=== PATIENT | female | born 1985 | race Caucasian/White ===

== ENCOUNTER 2016-12-25 12:08 | Emergency (ER) | payer MEDICAID ==
[~2016-12-25] VITALS: Wt 64.0 kg
[2016-12-25] MEDS ORDERED: ACET500C5 PO (12:42)
--- NOTE | 2016-12-25 12:48 | ERD ---
ER Documentation Chief Complaint Date/Time DATE: 12/25/16 TIME: 12:46 Chief Complaint CHEST PAIN X 1 WEEK 18 WEEKS PREG HPI This 31-year-old female is approximately 18 weeks by dates complaints of intermittent left-sided chest wall pain. She is able to reproduce it by moving and deep breathing. She is also able to reproduce it by pressing on her anterior chest wall. She denies any vaginal bleeding, abdominal pain, vomiting , fevers, hemoptysis or blood . She denies any calf swelling. ROS All systems reviewed and are negative except as per history of present illness. Medications Home Meds Active Scripts Acetaminophen* (Tylophen*) 500 Mg Capsule, 1 CAP PO Q6H Y for PAIN AND OR ELEVATED TEMP, #15 CAP Prov:TEODORA CLAROS MD 12/25/16 Physical Exam Vitals Vital Signs Date Time Temp Pulse Resp B/P Pulse Ox O2 Delivery O2 Flow Rate FiO2 12/25/16 12:10 98.0 70 18 147/96 99 Physical Exam Const: [] Alert, [id number]. Head: Atraumatic Eyes: Normal Conjunctiva ENT: Normal External Ears, Nose and Mouth. Neck: Full range of motion..~ No meningismus. Resp: Clear to auscultation bilaterally Cardio: Regular rate and rhythm, no murmurs. Reproducible left-sided chest wall pain at the costochondral junction. Abd: Soft, non tender, non distended. Normal bowel sounds Skin: No petechiae or rashes Back: No midline or flank tenderness Ext: No cyanosis, or edema. No calf swelling or Homans sign. Neur: Awake and alert Psych: Normal Mood and Affect Procedures/MDM EKG: Rate/Rhythm: [Normal Sinus Rhythm] rate equals 73 QRS, ST, T-waves: [No changes consistent w/ acute ischemia] Impression: [No evidence of ischemia or arrhythmia] This patient presents with reproducible left-sided chest wall pain. Patient is no signs or symptoms currently to suggest acute coronary syndrome, PE, pneumonia , hypoxemia. Patient was discharged home with a prescription of Tylenol and further observation. Further evaluation and radiologic studies were deferred given the risk of radiation and state. Patient should return for hemoptysis, shortness breath, fevers, new worsening symptoms with primary care doctor this week. Departure Diagnosis: Primary Impression: Chest pain Chest pain type: unspecified Qualified Code: R07.9 - Chest pain, unspecified type Condition: Stable Patient Instructions: Chest Wall Pain, Costochondritis Additional Instructions: Likely costochondrITIS. See primary doctor for follow-up or return for new or worsening symptoms having fever and, shortness of breath, blood, new symptoms TEODORA CLAROS MD Dec 25, 2016 12:48
== END 2016-12-25 13:00 | disposition home or self-care (01) ==
LOC: FTE 12:08
DX: O99.89 Other specified diseases and conditions complicating pregnancy, childbirth and the puerperium (principal); R07.89 Other chest pain; Z3A.18 18 weeks gestation of pregnancy
CPT/HCPCS: 99283

== ENCOUNTER 2017-04-18 11:12 | Outpatient (CLI) | payer MEDICAID ==
[~2017-04-18] VITALS: Ht 162.6 cm; Wt 72.3 kg
[~2017-04-18 11:12] MED LIST: ACET500C5 PO
[2017-04-18 11:27] VITALS: Ht 162.6 cm; Wt 72.3 kg
[2017-04-18 11:28] VITALS: BP 132/80; PULSE 76; RESP 18
[2017-04-18] MEDS ORDERED: LACTATED RINGER'S 1,000 ML IV ONE (12:30)
[2017-04-18 13:00] LABS: ALBUMIN 4.1 g/dl (3.3-4.9); ALBUMIN/GLOBULIN RATIO 1.28; BILIRUBIN,INDIRECT 0.2 mg/dl (0-1.1); BILIRUBIN,TOTAL 0.2 mg/dl (0.2-1.3); CALCIUM 9.3 mg/dl (8.4-10.2); CREATININE 0.72 mg/dl (0.44-1.00); POTASSIUM 4.1 mmol/L (3.5-5.1); TOTAL PROTEIN 7.3 g/dl (6.1-8.1)
[2017-04-18 13:06] LABS: ADD SCAN DIFF NO
[2017-04-18 13:15] LABS: ADD UMIC NO; UR ASCORBIC ACID NEGATIVE (NEGATIVE); UR BILIRUBIN (Dip) NEGATIVE (NEGATIVE); UR BLOOD (Dip) NEGATIVE (NEGATIVE); UR CLARITY CLEAR (CLEAR); UR COLOR YELLOW (YELLOW); UR GLUCOSE (Dip) NEGATIVE (NEGATIVE); UR KETONES (Dip) NEGATIVE (NEGATIVE); UR LEUKOCYTE ESTERASE (Dip) NEGATIVE Leu/ul (NEGATIVE); UR NITRITE (Dip) NEGATIVE (NEGATIVE); UR SPECIFIC GRAVITY (Dip) 1.011 (1.003-1.030); UR TOTAL PROTEIN (Dip) NEGATIVE (NEGATIVE); UR UROBILINOGEN (Dip) NEGATIVE (NEGATIVE)
[2017-04-18] MEDS ORDERED: LACTATED RINGER'S 1,000 ML IV SCH (13:30)
[2017-04-18 14:14] LABS: BASOPHILS % 0.2 % (0.0-2.0); EOSINOPHILS # 0.1 10^3/ul (0.0-0.5); EOSINOPHILS % 0.5 % (0.0-7.0); LYMPHOCYTES % 14.8 % (15.0-51.0); MEAN CORPUSCULAR HEMOGLOBIN 29.9 pg (29.0-33.0); MEAN CORPUSCULAR HGB CONC 32.5 g/dl (32.0-37.0); MEAN PLATELET VOLUME 10.9 fl (7.4-10.4); MONOCYTE # 1.1 10^3/ul (0.3-0.9); MONOCYTES % 8.4 % (0.0-11.0); NEUTROPHIL # 9.9 10^3/ul (1.6-7.5); NEUTROPHILS % 74.7 % (39.0-77.0); PLATELET COUNT 186 10^3/UL (140-415); RED BLOOD COUNT 4.35 10^6/ul (4.20-5.40); RED CELL DISTRIBUTION WIDTH 12.5 % (11.5-14.5); WHITE BLOOD COUNT 13.3 10^3/ul (4.8-10.8)
[2017-04-18] MEDS ORDERED: METH250T PO (15:08)
[2017-04-18] MEDS ORDERED: PRENAT PO (15:08)
[2017-04-18] MEDS ORDERED: FERR325C PO (15:08)
--- NOTE | 2017-04-18 15:19 | TRIAGE ---
OB Triage Datetime Report Generated by CPN: 04/18/2017 15:19 Datetime: 04/18/2017 13:15 Labor Evaluation Frequency: 2-10 Monitor Mode: External Duration (sec)2399: 50-90 Quality: Moderate Pattern: Normal: <= 5 Contractions in 10 Minutes Resting Tone [place]: Relaxed Heart Rate FHR Baseline Rate: 140 Monitor Mode: External US FHR Baseline Changes: No Baseline Change Variability: Moderate 6-25 bpm Accelerations: 15X15 Decelerations: None Category: Category I Pain Assessment Pain Scale: 4 Pain Presence: Intermittent Pain Type: Contraction; Pressure Pain Location: Abdomen; Back Pain Goal: 0 Pain Relief Measures: Comfort Measures Datetime: 04/18/2017 12:15 Labor Evaluation Frequency: 2-4.5 Monitor Mode: External Duration (sec)2399: 50-100 Quality: Moderate Pattern: Normal: <= 5 Contractions in 10 Minutes Resting Tone [place]: Relaxed Heart Rate FHR Baseline Rate: 135 Monitor Mode: External US FHR Baseline Changes: No Baseline Change Variability: Moderate 6-25 bpm Accelerations: 15X15 Decelerations: None Category: Category I Pain Assessment Pain Scale: 4 Pain Presence: Intermittent Pain Type: Contraction; Pressure Pain Location: Abdomen Pain Goal: 0 Pain Relief Measures: Comfort Measures Datetime: 04/18/2017 11:25 Time of Arrival: 04/18/2017 11:05 EGA: 35.2 Arrived By: Wheelchair Arrived From: Emergency Dept Chief Complaint: Headache Movement: Present Contractions: Denies/Absent Rupture of Membranes: Denies Vaginal Discharge: Denies Recent Sexual Intercouse: Denies Abdominal Trauma: Not Applicable Additional Patient Complaints: Elevated BPs Time Provider Notified: 04/18/2017 12:05 Provider Notified: Inessa Initial Plan: NST, PIH panel and UA, IV hydration Datetime: 04/18/2017 11:15 Stage of : OB Triage
--- NOTE | 2017-04-18 18:47 | QN ---
Documentation Comment iup 35 + g1po co of MCDONNELL vss bp 120/80 exam wnl cbc,cmp, ua wnl nst reacitve a/p iup 35 weeks MCDONNELL resolved dc home MARYSOL PEDRAZA MD Apr 18, 2017 18:47
== END 2017-04-18 15:15 | disposition home or self-care (01) ==
LOC: OBT 11:12 → L-D 11:14 → OBT 15:15
PROVIDERS: ATTEND Obstetrics & Gynecology
DX: O26.893 Other specified pregnancy related conditions, third trimester (principal); Z3A.35 35 weeks gestation of pregnancy; R51 Headache
CPT/HCPCS: 36415; 80053; 81003; 84560; 85025; 96360; 96361; J7120; Z7500; G0463

== ENCOUNTER 2017-04-29 10:54 | Outpatient (CLI) | payer MEDICAID ==
[~2017-04-29] VITALS: Ht 160 cm; Wt 75.4 kg
[~2017-04-29 10:54] MED LIST changes: +FERR325C PO; +METH250T PO; +PRENAT PO
[2017-04-29 11:17] VITALS: Ht 160 cm; Wt 75.4 kg
--- NOTE | 2017-04-29 12:51 | RADRPT ---
PROCEDURE: OB ultrasound for biophysical profile CLINICAL INDICATION: Labor TECHNIQUE: Multiple sonographic images of the pelvis were obtained. Transabdominal views of the g ravid uterus are available for review. The images were reviewed on a PACS workstation. COMPARISON: None FINDINGS: breathing movement = 2/2 tone = 2/2 motion = 2/2 MIGNON = 2/2 MIGNON = 11.6 cm Single live intrauterine with cardiac activity of 154 bpm. position is cephal ic. The placenta is anterior. IMPRESSION: 1. Single live intrauterine gestation. 2. Biophysical profile = 8/8. 3. MIGNON = 11.6 cm. RPTAT: HH .Patti Callejas MD, MD Date Time Electronically viewed and signed by .Patti Callejas MD, on 04/29/2017 12:51 .G/
--- NOTE | 2017-04-29 13:08 | RADRPT ---
PROCEDURE: US OB. CLINICAL INDICATION: Size and dates TECHNIQUE: Multiple sonographic images of the pelvis were obtained. Transabdominal imaging only w as performed. The images were reviewed on a PACS workstation. COMPARISON: No prior studies are available for comparison. FINDINGS: There is a single live intrauterine gestation. Cardiac activity is present with 166 beats per minut e. position is cephalic. Measurements were made in order to determine age. The results are as follows: BPD = 8.67 cm HC = 30.74 cm AC = 32.54 cm FL = 6.89 cm. Estimated gestational age of approximately 35 weeks 2 days. The estimated date of delivery is 06/01/2017. The EFW = 2763 g, 26.9 %ile. The placenta is anterior. There is no evidence for an abruption or placenta previa. There are no adnexal masses. IMPRESSION: 1. Single live intrauterine gestation of approximately 35 weeks 2 days, by ultrasound criteria. 2. The estimated date of delivery is 06/01/2017. 3. The estimated weight is 2763 g, 26.9 %ile. RPTAT: HH .Patti Callejas MD, Date Time Electronically viewed and signed by .Patti Callejas MD, on 04/29/2017 13:08 .G/
--- NOTE | 2017-04-29 13:50 | CONS ---
Date/Time of Note Date/Time of Note DATE: 04/29/17 TIME: 13:39 Consultation Date/Type/Reason Admit Date/Time April 29, 2017 OB triage consult Reason for Consultation This patient is a 32 years old primigravida with estimated date of confinement of May 21, 2017 which makes her 36 weeks and 6 days today she came in due to complain of uterine contractions. She is currently on methyldopa 250 mg twice daily. On examination she is a well-developed well-nourished -Indian lady whose main complaint is occasional contractions Her general vital signs appears to be normal with blood pressure over 132/77, pulse rate of 88, respiration of 18, and a temperature of 98.5. Her abdomen is soft contractions fairly irregular fetus in vertex presentation heart tone is normal with the tracing with good variability occasional acceleration no sign of decelerations. Pelvic examination was performed about 12 hours ago cervix was 1 cm 50% -2 and the same pelvic exam was repeated 2 hours later which is basically unchanged Constitutional: No chills, No diaphoresis, No disoriented, No febrile, No improved, No no complaints, No other, No poor po, No requiring IVF, No requiring O2 Eyes: No discharge, No no complaints, No other, No pain, No redness, No visual change ENT: No bleeding, No congestion, No discharge, No dysphagia, No no complaints, No other, No pain, No sore throat Respiratory: No cough, No no complaints, No other, No pain, No pleuritic pain, No shortness of breath, No sputum, No wheezing Cardiovascular: No chest pain, No edema, No lightheadedness, No no complaints, No orthopenea, No other, No palpitations, No paroxysmal nocturnal dyspnea Gastrointestinal: No blood, No constipation, No decreased appetite, No diarrhea , No flatus, No nausea, No no complaints, No other, No pain, No passing stool, No vomiting Genitourinary: other (As I mentioned on pelvic examination cervix was basically closed with 50% effacement and -2 station with intact membranes), No bleeding, No discharge, No dysuria, No flank pain, No hematuria, No no complaints Musculoskeletal: No back pain, No bone/joint pain, No neck pain, No no complaints, No other, No restricted range of motion, No swelling Skin: No bruising, No erythema, No laceration, No no complaints, No other, No pruritis, No rash, No skin lesions Neurologic: No confusion, No dizziness, No focal-weakness, No headache, No no complaints, No other, No seizure, No syncope Endocrine: No dry skin, No no complaints, No other, No polydypsia, No polyuria , No temp intolerance Additional Comments An ultrasound study was performed and the report was a single live intrauterine with heart activity of 154 bpm in cephalic presentation her amniotic fluid index was 11.6 cm the biophysical profile was 8/8. The measurement of the fetus was reported as being on ultrasound 35 weeks and 2 days with estimated delivery of 06/01/2017 estimated weight was 2763 g which is at 26.9 percentile placenta remission was anterior disposition with these finding patient was discharged home with the precaution to do kick count and to be followed in her assistant scientist's office end of dictation Social History Smoking Status: Never smoker MONICA MADRID MD Apr 29, 2017 13:50
--- NOTE | 2017-04-29 15:13 | TRIAGE ---
OB Triage Datetime Report Generated by CPN: 04/29/2017 15:12 Datetime: 04/29/2017 13:24 Stage of : OB Triage Datetime: 04/29/2017 13:18 Labor Evaluation Frequency: 8-12 Monitor Mode: External Duration (sec)2399: 50-90 Quality: Mild Resting Tone [place]: Relaxed Heart Rate FHR Baseline Rate: 145 Monitor Mode: External US Variability: Moderate 6-25 bpm Decelerations: None Category: Category I Pain Assessment Pain Scale: 3 Pain Presence: Intermittent Pain Type: Cramping Pain Location: Abdomen; Perineum Pain Goal: 3 Pain Relief Measures: Comfort Measures Datetime: 04/29/2017 13:14 Vaginal Exam Dilatation (cms): 1.0 Effacement (%): 50 Station: -2 Vaginal Bleeding: Scant Cervix, Consistency: Soft Cervix, Position: Midposition Presentation 'A': Cephalic Datetime: 04/29/2017 12:21 Stage of : OB Triage Datetime: 04/29/2017 12:14 Labor Evaluation Frequency: 8-10 Monitor Mode: External Duration (sec)2399: 30-50 Quality: Mild Pattern: Normal: <= 5 Contractions in 10 Minutes Resting Tone [place]: Relaxed Heart Rate FHR Baseline Rate: 145 Monitor Mode: External US Variability: Moderate 6-25 bpm Accelerations: 10X10 Decelerations: None Category: Category I Pain Assessment Pain Scale: 3 Pain Presence: Intermittent Pain Type: Cramping Pain Location: Abdomen Pain Goal: 3 Pain Relief Measures: Comfort Measures Datetime: 04/29/2017 12:09 Stage of : OB Triage Datetime: 04/29/2017 11:12 Stage of : OB Triage Assessment Type: Triage Maternal Assessment Level of Consciousness: Fully Conscious DTR's/Clonus: DTRs 2+; No Clonus Headache: Denies Blurred Vision: No Respiratory Effort: Unlabored; Regular Rhythm; Equal Expansion Breath Sounds, Left: Clear and Equal Breath Sounds, Right: Clear and Equal Nausea/Vomiting: Denies RUQ Epigastric Pain: Denies Facial Edema: None Temperature Route: Axillary Fall Risk Assessment History of Falling: (0) No Secondary Diagnosis: (0) No Ambulatory Aid: (0) Bedrest/Nurse Assist IV Therapy: (0) No Gait: (0) Normal/Bedrest/Immobile Mental Status: (0) Oriented to Own Ability Fall Score: 0 Fall Risk Score Definition: No Risk: No action required Labor Evaluation Frequency: 1-3 Monitor Mode: External Duration (sec)2399: 30 Quality: Mild Pattern: Normal: <= 5 Contractions in 10 Minutes Resting Tone [place]: Relaxed Interventions: Sterile Vaginal Exam Heart Rate FHR Baseline Rate: 145 Monitor Mode: External US Variability: Moderate 6-25 bpm Accelerations: 10X10 Decelerations: None Category: Category I Pain Assessment Pain Scale: 3 Pain Presence: Intermittent Pain Type: Cramping; Contraction Pain Location: Abdomen Pain Goal: 3 Pain Relief Measures: Comfort Measures Vaginal Exam Dilatation (cms): 1.0 Effacement (%): 50 Station: -2 Exam By: S YAHAIRA Membrane Status: Intact Datetime: 04/29/2017 11:10 Time of Arrival: 04/29/2017 10:50 EGA: 36.6 Arrived By: Ambulatory Arrived From: Home Chief Complaint: C/O UC'S Q 5-10 MIN X 1 DAY.. DENIES BLEEDING OR LEAKING Movement: Present Contractions: Irregular Contractions: 5-10 Rupture of Membranes: Denies Vaginal Discharge: Denies Recent Sexual Intercouse: Yes Abdominal Trauma: Not Applicable Patient Complaints: Contractions; Cramping Time Provider Notified: 04/29/2017 12:20 Provider Notified: [facility] Initial Plan: MONITOR,, BPP EFW Datetime: 04/18/2017 15:00 Labor Evaluation Frequency: 1-5 Monitor Mode: External Duration (sec)2399: 40-100 Quality: Moderate Pattern: Normal: <= 5 Contractions in 10 Minutes Resting Tone [place]: Relaxed Heart Rate FHR Baseline Rate: 150 Monitor Mode: External US FHR Baseline Changes: No Baseline Change Variability: Moderate 6-25 bpm Accelerations: 15X15 Decelerations: None Category: Category I Pain Presence: None/Denies Datetime: 04/18/2017 14:00 Labor Evaluation Frequency: 2-8 Monitor Mode: External Duration (sec)2399: 50-90 Quality: Moderate Pattern: Normal: <= 5 Contractions in 10 Minutes Resting Tone [place]: Relaxed Heart Rate FHR Baseline Rate: 135 Monitor Mode: External US FHR Baseline Changes: No Baseline Change Variability: Moderate 6-25 bpm Accelerations: 15X15 Decelerations: None Category: Category I Pain Assessment Pain Scale: 2 Pain Presence: Intermittent Pain Type: Contraction; Pressure Pain Location: Abdomen; Back Pain Goal: 0 Pain Relief Measures: Comfort Measures Datetime: 04/18/2017 11:25 EGA: 35.2
== END 2017-04-29 13:40 | disposition home or self-care (01) ==
LOC: L-D 10:54 → OBT 10:54
PROVIDERS: ATTEND Obstetrics & Gynecology
DX: O62.9 Abnormality of forces of labor, unspecified (principal); Z3A.36 36 weeks gestation of pregnancy
CPT/HCPCS: 76815; 76818; Z7500; G0463

== ENCOUNTER 2017-05-16 08:46 | Inpatient (IN) | END 2017-05-19 21:20 | disposition home or self-care (01) | DRG 766 | DX: O76 Abnormality in fetal heart rate and rhythm complicating labor and delivery (principal); Z37.0 Single live birth; Z3A.38 38 weeks gestation of pregnancy ==

== ENCOUNTER 2017-05-27 15:35 | Inpatient (IN) | payer MEDICAID ==
[~2017-05-27] VITALS: Ht 162.6 cm; Wt 70.5 kg
[~2017-05-27 15:35] MED LIST changes: -ACET500C5 PO
[2017-05-27] MEDS ORDERED: MAGNESIUM SULFATE 4 GM/100 ML 100 ML IVPB ONE (16:30)
[2017-05-27 16:38] LABS: BASOPHILS % 0.1 % (0.0-2.0); EOSINOPHILS # 0.2 10^3/ul (0.0-0.5); EOSINOPHILS % 2.8 % (0.0-7.0); HEMATOCRIT 34.3 % (37.0-47.0); LYMPHOCYTES # 2.6 10^3/ul (0.8-2.9); LYMPHOCYTES % 30.2 % (15.0-51.0); MEAN CORPUSCULAR HEMOGLOBIN 29.3 pg (29.0-33.0); MEAN CORPUSCULAR HGB CONC 32.1 g/dl (32.0-37.0); MEAN CORPUSCULAR VOLUME 91.2 fl (82.0-101.0); MEAN PLATELET VOLUME 9.5 fl (7.4-10.4); MONOCYTE # 0.6 10^3/ul (0.3-0.9); MONOCYTES % 7.5 % (0.0-11.0); NEUTROPHILS % 58.9 % (39.0-77.0); PLATELET COUNT 365 10^3/UL (140-415); RED BLOOD COUNT 3.76 10^6/ul (4.20-5.40); RED CELL DISTRIBUTION WIDTH 13.2 % (11.5-14.5); WHITE BLOOD COUNT 8.5 10^3/ul (4.8-10.8)
[2017-05-27 16:53] LABS: INR 0.91; PROTIME 12.3 Sec (12.2-14.2)
[2017-05-27 16:54] LABS: PARTIAL THROMBOPLASTIN TIME 31.3 Sec (25.0-35.0)
[2017-05-27 16:57] LABS: ALBUMIN 3.6 g/dl (3.3-4.9); ALBUMIN/GLOBULIN RATIO 0.97; BILIRUBIN,INDIRECT 0.1 mg/dl (0-1.1); BILIRUBIN,TOTAL 0.1 mg/dl (0.2-1.3); CREATININE 0.92 mg/dl (0.44-1.00); POTASSIUM 4.3 mmol/L (3.5-5.1); TOTAL PROTEIN 7.3 g/dl (6.1-8.1)
[2017-05-27 17:18] LABS: CALCIUM 9.6 mg/dl (8.4-10.2)
--- NOTE | 2017-05-27 19:45 | ERA ---
ER Documentation Chief Complaint Date/Time DATE: 05/27/17 TIME: 19:41 Chief Complaint SENT BY PMD FOR EVAL ON HTN , C SECTION 05/16/17 HPI Patient is a 32-year-old female sent to the ER by her GLASS CRUSHER for elevated blood pressure. The patient is 1 week and has experienced gradual onset, constant, progressive bilateral leg swelling during this time. She denies shortness of breath, chest pain, abdominal pain, fever. She was on methyldopa for preeclampsia during . She denies having hypertension prior to . She is breast-feeding. ROS All systems reviewed and are negative except as per history of present illness. Medications Home Meds Reported Medications Methyldopa* (Methyldopa*) 250 Mg Tablet, 250 MG PO BID, TAB 04/18/17 Ferrous Sulfate (Iron) 325 Mg Capsule.er, 325 MG PO, CAP 04/18/17 Multivit/Min/Fol Ac/Iron/Pren* ( S*) 1 Tab Tab, 1 TAB PO DAILY, TAB 04/18/17 Allergies Allergies: Coded Allergies: No Known Allergy (Unverified , 05/27/17) PMhx/Soc Past medical history: None Past surgical history: None Social history: Denies tobacco, alcohol or illicit drugs History of Surgery: Yes (c section 05/16/17) Anesthesia Reaction: No Hx Neurological Disorder: No Hx Respiratory Disorders: No Hx Cardiac Disorders: No Hx Psychiatric Problems: No Hx Miscellaneous Medical Probl: No Hx Alcohol Use: No Hx Substance Use: No Hx Tobacco Use: No Smoking Status: Never smoker FmHx Family History: No coronary disease, No diabetes Physical Exam Vitals Vital Signs Date Time Temp Pulse Resp B/P Pulse Ox O2 Delivery O2 Flow Rate FiO2 05/27/17 15:40 98.8 72 18 165/91 98 Physical Exam Const: Alert, no acute distress Head: Atraumatic Eyes: Normal Conjunctiva, no pallor, no icterus ENT: Normal External Ears, Nose and Mouth. Neck: Full range of motion..~ No meningismus. No JVD Resp: Clear to auscultation bilaterally, no wheezes, no rales Cardio: Regular rate and rhythm, no murmurs Abd: Soft, non tender, questionable mild distention, no rebound, no guarding Skin: No petechiae or rashes Back: No midline or flank tenderness Ext: No cyanosis, 2+ pitting edema to bilateral ankles to the midshin, symmetric, no calf tenderness Neur: Awake and alert, cranial nerves II through XII intact bilaterally, strength and sensation full in 4 extremities, no tremor, no asterixis Psych: Normal Mood and Affect Result Diagram: 05/27/17 1614 05/27/17 1614 Results 24 hrs Laboratory Tests Test 05/27/17 16:10 05/27/17 16:14 Prothrombin Time 12.3Sec Prothrombin Time Ratio 1.0 INR International Normalized Ratio 0.91 Activated Partial Thromboplast Time 31.3Sec White Blood Count 8.510^3/ul Red Blood Count 3.7610^6/ul Hemoglobin 11.0g/dl Hematocrit 34.3% Mean Corpuscular Volume 91.2fl Mean Corpuscular Hemoglobin 29.3pg Mean Corpuscular Hemoglobin Concent 32.1g/dl Red Cell Distribution Width 13.2% Platelet Count 37237^3/UL Mean Platelet Volume 9.5fl Neutrophils % 58.9% Lymphocytes % 30.2% Monocytes % 7.5% Eosinophils % 2.8% Basophils % 0.1% Nucleated Red Blood Cells % 0.0/100WBC Neutrophils # (Manual) 5.010^3/ul Lymphocytes # 2.610^3/ul Monocytes # 0.610^3/ul Eosinophils # 0.210^3/ul Basophils # 0.010^3/ul Nucleated Red Blood Cells # 0.010^3/ul Sodium Level 145mmol/L Potassium Level 4.3mmol/L Chloride Level 105mmol/L Carbon Dioxide Level 27mmol/L Anion Gap 17 Blood Urea Nitrogen 12mg/dl Creatinine 0.92mg/dl Glucose Level 84mg/dl Calcium Level 9.6mg/dl Total Bilirubin 0.1mg/dl Direct Bilirubin 0.00mg/dl Indirect Bilirubin 0.1mg/dl Aspartate Amino Transf (AST/SGOT) 35IU/L Alanine Aminotransferase (ALT/SGPT) 55IU/L Alkaline Phosphatase 115IU/L Total Protein 7.3g/dl Albumin 3.6g/dl Globulin 3.70g/dl Albumin/Globulin Ratio 0.97 Lipase 82U/L Current Medications Medications (Trade) Dose Ordered Sig/Cira Route PRN Reason Start Time Stop Time Status Last Admin Dose Admin Magnesium Sulfate (Magnesium Sulfate 4 Gm/100 ml) 100 ml @ 25 mls/hr ONCE ONCE IVPB 05/27/17 16:30 05/27/17 20:29 05/27/17 16:49 Ondansetron HCl (Zofran Inj) 4 mg BRIDGE ORDER PRN IV NAUSEA AND/OR VOMITING 05/27/17 20:00 05/28/17 19:59 Acetaminophen (Tylenol Tab) 650 mg ER BRIDGE PRN PO MILD PAIN/FEVER 05/27/17 20:00 05/28/17 19:59 Procedures/MDM Patient is a 32-year-old female who presents with bilateral leg edema and elevated blood pressure 1 week . She has history of preeclampsia during . She was sent by her GLASS CRUSHER, Dr. Houston, who requested IV magnesium and admission for further workup. Her labs are unremarkable, UA is pending to evaluate for proteinuria. She has no cardiopulmonary symptoms, no signs to suggest DVT. She will be admitted by Dr. Castellon. Departure Diagnosis: Primary Impression: Preeclampsia Qualified Code: O14.90 - Preeclampsia, unspecified trimester Condition: LARISSA Land MD May 27, 2017 19:44
[2017-05-27] MEDS ORDERED: ACETAMINOPHEN 325 MG TAB PO PRN (20:00)
[2017-05-27] MEDS ORDERED: ONDANSETRON 4 MG INJ IV PRN ×2 (20:00→22:30)
[2017-05-27 20:11] LABS: ADD UMIC YES; UR ASCORBIC ACID NEGATIVE (NEGATIVE); UR BACTERIA FEW /HPF (NONE SEEN); UR BILIRUBIN (Dip) NEGATIVE (NEGATIVE); UR BLOOD (Dip) 2+ mg/dL (NEGATIVE); UR CLARITY CLEAR (CLEAR); UR COLOR YELLOW (YELLOW); UR GLUCOSE (Dip) NEGATIVE (NEGATIVE); UR KETONES (Dip) NEGATIVE (NEGATIVE); UR LEUKOCYTE ESTERASE (Dip) NEGATIVE Leu/ul (NEGATIVE); UR NITRITE (Dip) POSITIVE (NEGATIVE); UR RBC 1 /HPF (0-5); UR TOTAL PROTEIN (Dip) NEGATIVE (NEGATIVE); UR UROBILINOGEN (Dip) NEGATIVE (NEGATIVE)
[2017-05-27 20:57] VITALS: TEMP 98.8
[2017-05-27] MEDS ORDERED: MAGNESIUM SULFATE 20 GM/500 ML 500 ML IV SCH (22:40)
[2017-05-27] MEDS: LACTATED RINGER'S 1,000 ML IV SCH (22:51)
[2017-05-27] MEDS: ACETAMINOPHEN 325 MG TAB PO PRN (22:56)
[2017-05-27] MEDS ORDERED: LABETALOL 100 MG TAB PO ONE (23:00)
[2017-05-28] VITALS (10 sets, daily range): BP systolic 132–174; BP diastolic 90–102; PULSE 56–74; RESP 16–20; Ht 162.6 cm; Wt 70.5 kg
[2017-05-28] MEDS: MAGNESIUM SULFATE 20 GM/500 ML 500 ML IV SCH ×3 (00:04→17:51)
[2017-05-28] MEDS: ACETAMINOPHEN 325 MG TAB PO PRN ×5 (05:46→20:25)
[2017-05-28] MEDS: LABETALOL 100 MG TAB PO SCH ×2 (08:50→20:25)
[2017-05-28] MEDS: LACTATED RINGER'S 1,000 ML IV SCH ×2 (10:45→21:29)
[2017-05-29 05:23] LABS: COLLECTION PERIOD 24 hrs
[2017-05-29] MEDS: LABETALOL 100 MG TAB PO SCH ×2 (09:02→20:56)
[2017-05-29] MEDS: ACETAMINOPHEN 325 MG TAB PO PRN (09:03)
[2017-05-29] MEDS: MAGNESIUM SULFATE 20 GM/500 ML 500 ML IV SCH (09:03)
[2017-05-29 09:09] LABS: COLLECTION PERIOD 24 hrs
[2017-05-29 10:06] VITALS: BP 141/90; PULSE 59; RESP 20
[2017-05-29 10:20] VITALS: BP 114/72; PULSE 67; RESP 16
[2017-05-29 13:20] VITALS: BP 138/93; PULSE 65; RESP 20
--- NOTE | 2017-05-29 14:40 | HP ---
Date/Time of Note Date/Time of Note DATE: 05/29/17 TIME: 14:32 OB - History Hx of Present Free Text/Dictation This is a 32 years old and femur one-point approximately 2 weeks seen at the clinic and noted she has swelling of both ANKLES complaining of head commended patient to be admitted in the hospital with a diagnosis preeclampsia Estimated Due Date: May 24, 2017 : 1 Para: 0 Care: Limited Care Obstetrical Complications: Gestational Hypertension Medical Complications: Other (Chronic hypertension methyldopa 250 twice daily) Past Family/Social History * Past Medical, Surgical, Family and Obstetric Histories reviewed from chart. Rubella: immune RPR/VDRL: Negative GBS Status: Negative HBsAG: Negative OB Admission Exam Vital Signs Vital Signs Vital Signs Date Time Temp Pulse Resp B/P Pulse Ox O2 Delivery O2 Flow Rate FiO2 05/29/17 13:20 65 20 138/93 05/29/17 10:06 98.2 99 Room Air Physical Exam HEENT: WNL Heart: Rhythm Normal Lungs: Clear, Equal Extremities: Edema Reflexes: Normal Cervical Dilatation: other (Status post ) Last 72 hours Lab Results CBC & BMP 05/27/17 16:14 Liver Function Test 05/27/17 16:14 Alanine Aminotransferase (ALT/SGPT) 55 Albumin 3.6 Alkaline Phosphatase 115 Aspartate Amino Transf (AST/SGOT) 35 Direct Bilirubin 0.00 Total Protein 7.3 Magnesium Level Test 05/28/17 06:00 05/28/17 12:52 05/28/17 17:07 05/29/17 13:30 Magnesium Level 6.3 *H 6.4 *H 6.2 *H 6.0 *H OB Assessment/Plan Reason for admission: other (32 years old female 2 weeks from the clinic diagnosis of labs with a chief complaint of headache edema both ankles is being worked up for preeclampsia and manage for the same diagnosis) Plan: Other ( preeclampsia) ANDRADE WALSH MD May 29, 2017 14:40
--- NOTE | 2017-05-29 14:42 | PN ---
Date/Time of Note Date/Time of Note DATE: 05/29/17 TIME: 14:40 OB Subjective Subjective Subjective Resting in bed Febrile Blood pressures mostly running on 40s over 80 but no complaint of headache or blurry vision or epigastric pain, 24 hour urine collection for protein report 600mg, currently is a total 100 mg twice daily we will continue treatment plan of discharge discussed . ANDRADE WALSH MD May 29, 2017 14:42
[2017-05-29 18:46] VITALS: BP 137/89; PULSE 72; RESP 20
[2017-05-30] MEDS: ACETAMINOPHEN 325 MG TAB PO PRN (04:00)
[2017-05-30] MEDS: LABETALOL 100 MG TAB PO SCH (09:04)
[2017-05-30 09:08] VITALS: BP 157/97; PULSE 63
[2017-05-30 12:08] VITALS: BP 133/86; PULSE 63; RESP 20
--- NOTE | 2017-05-30 15:47 | DS ---
DATE OF ADMISSION: 05/27/2017 DATE OF DISCHARGE: 05/30/2017 FINAL DIAGNOSES: preeclampsia. HISTORY OF PRESENT ILLNESS: The patient is a 32-year-old G1 now P1 who delivered on 05/16/2017 via section. The patient presented to the clinic complaining of headache and the patient had high blood pressure with headaches. The patient at this point was sent to [facility] for further evaluation. Upon examination on admission, the patient was found to have preeclampsia and was admitted. Labs were drawn which were within normal limits. The patient had elevated blood pressures for which she was put on labetalol. The patient received 24 hours of magnesium. The patient is hospital day number 3 now, is doing well with no headaches, blurry vision, abdominal pain. PHYSICAL EXAM: VITAL SIGNS: Stable. HEART: Regular rate and rhythm. ABDOMEN: Soft, nontender. Fundal height is 15 cm. EXTREMITIES: There is no edema. Wound is clean, dry and intact. DISCHARGE MEDICATIONS: The patient will be discharged home with labetalol p.o. FOLLOWUP: Follow up with DIVIDEND CLERK in 2-3 days for blood pressure check. DISCHARGE CONDITION: Stable. Dictated By: Nabor Wylie MD /sheila/benny /Document#: [id number]
== END 2017-05-30 16:30 | disposition home or self-care (01) | DRG 776 ==
LOC: E/R 15:35 → OBG 21:46
PROVIDERS: ADMIT Obstetrics & Gynecology; ATTEND Obstetrics & Gynecology
DX: O14.95 Unspecified pre-eclampsia, complicating the puerperium (principal); R51 Headache
CPT/HCPCS: 36415; 80053; 81001; 82575; 83690; 83735; 84156; 85025; 85610; 85730; 96374; J3475; J7120

== ENCOUNTER 2017-07-09 10:19 | Emergency (ER) | payer MEDICAID ==
[~2017-07-09] VITALS: Wt 65.0 kg
[~2017-07-09 10:19] MED LIST changes: -METH250T PO
[2017-07-09] MEDS ORDERED: BACI28.34 TOP (10:51)
--- NOTE | 2017-07-09 17:12 | ERD ---
ER Documentation Chief Complaint Date/Time DATE: 07/09/17 TIME: 17:08 Chief Complaint PT HERE FOR WOUND RECHECK S/P 1 MONTH AGO HPI Patient is a 32-year-old female presenting to the emergency department for wound check of her incision site to the right lower abdomen. Patient had a on May 16, 2017. She denies any discharge, redness, fevers, or other symptoms. She does report mild pain at the site. She did have proper follow-up with Dr. Bruce, who was the surgeon that performed the . ROS All systems reviewed and are negative except as per history of present illness. Medications Home Meds Active Scripts Bacitracin* (Bacitracin Zinc Oint*) 28.35 Gm Oint, 1 APPLIC TOP BID, #1 TUB APPLI TO Prov:BÁRBARA FOREMAN PA-C 07/09/17 Reported Medications Ferrous Sulfate (Iron) 325 Mg Capsule.er, 325 MG PO, CAP 04/18/17 Multivit/Min/Fol Ac/Iron/Pren* ( S*) 1 Tab Tab, 1 TAB PO DAILY, TAB 04/18/17 Allergies Allergies: Coded Allergies: No Known Allergy (Unverified , 05/27/17) PMhx/Soc History of Surgery: Yes (c section 05/16/17) Anesthesia Reaction: No Hx Neurological Disorder: No Hx Respiratory Disorders: No Hx Cardiac Disorders: No Hx Psychiatric Problems: No Hx Miscellaneous Medical Probl: No Hx Alcohol Use: No Hx Substance Use: No Hx Tobacco Use: No Smoking Status: Never smoker Physical Exam Vitals Vital Signs Date Time Temp Pulse Resp B/P Pulse Ox O2 Delivery O2 Flow Rate FiO2 07/09/17 10:21 97.3 80 17 171/112 100 Physical Exam Const: Nontoxic, well-appearing female in no acute distress. Head: Atraumatic Eyes: Normal Conjunctiva ENT: Normal External Ears, Nose and Mouth. Neck: Full range of motion..~ No meningismus. Resp: Clear to auscultation bilaterally Cardio: Regular rate and rhythm, no murmurs Abd: Soft, non tender, non distended. Normal bowel sounds here there is a well-healed incision to the suprapubic area consistent with post . There was a very small approximate 1 cm in length what appeared to be possibly a piece of plastic which fell out of the incision site when examined. The incision site was not open. There is no surrounding warmth or erythema. No discharge. No other signs of cellulitis. Skin: No petechiae or rashes Back: No midline or flank tenderness Ext: No cyanosis, or edema Neur: Awake and alert Psych: Normal Mood and Affect Procedures/MDM 32-year-old female presenting to the emergency department for examination of her surgical site. She is approximately 2 months postop of . On examination, with nurse furnace converter present, Soni, there is a small piece of what appeared to be plastic that fell out of the incision site in the right lower abdominal area. This may have been a subdermal suture. The wound was not open. There was no discharge. No surrounding warmth or erythema. No other signs of cellulitis. The patient was stable for discharge with scheduled follow-up with the surgeon and her primary care physician. She was advised to return sooner for any new or worsening symptoms. Departure Diagnosis: Primary Impression: Encounter for wound re-check Condition: Fair Patient Instructions: Post Op Wound Check, Pain Referrals: [facility] YOU HAVE RECEIVED A MEDICAL SCREENING EXAM AND THE RESULTS INDICATE THAT YOU DO NOT HAVE A CONDITION THAT REQUIRES URGENT TREATMENT IN THE EMERGENCY DEPARTMENT. FURTHER EVALUATION AND TREATMENT OF YOUR CONDITION CAN WAIT UNTIL YOU ARE SEEN IN YOUR DOCTORS OFFICE WITHIN THE NEXT 1-2 DAYS. IT IS YOUR RESPONSIBILITY TO MAKE AN APPOINTMENT FOR FOLOW-UP CARE. IF YOU HAVE A PRIMARY DOCTOR --you should call your primary doctor and schedule an appointment IF YOU DO NOT HAVE A PRIMARY DOCTOR YOU CAN CALL OUR PHYSICIAN REFERRAL HOTLINE AT IF YOU CAN NOT AFFORD TO SEE A PHYSICIAN YOU CAN CHOSE FROM THE FOLLOWING [facility] [address] [facility] [address] [facility]. [facility] [address] [facility] [address] [facility] [address] [facility]. [facility]. [address] Additional Instructions: Follow up with your PCP within the next 1-3 days for a repeat evaluation. If you require a referral to a specialist, your Primary Care Provider may be able to provide this for you. In most patient cases, a referral is not required. If you have further questions regarding this matter, please ask your Primary Care Provider. Return the the emergency department immediately if symptoms worsen or change. If you have any questions regarding medications, ask your pharmacist or us before you leave. If any adverse reactions, occur while taking your medications, discontinue the treatment and return to the emergency department immediately. If any new or worsening symptoms, uncontrolled fevers, or other unexplained symptoms occur, return to the emergency department immediately. Take your medications as directed, and complete the entire course of treatment. BÁRBARA FOREMAN PA-C Jul 09, 2017 17:12
== END 2017-07-09 10:54 | disposition home or self-care (01) ==
LOC: FTE 10:19
DX: Z48.01 Encounter for change or removal of surgical wound dressing (principal)
CPT/HCPCS: 99283

== ENCOUNTER 2017-08-10 18:40 | Emergency (ER) | payer MEDICAID ==
[~2017-08-10] VITALS: Ht 172.7 cm; Wt 65.2 kg
[~2017-08-10 18:40] MED LIST changes: +BACI28.34 TOP
[2017-08-10 19:07] VITALS: Ht 172.7 cm; Wt 65.2 kg
--- NOTE | 2017-08-10 22:01 | ERD ---
ER Documentation Chief Complaint Chief Complaint BIB SELF, CC: LEFT HAND INDEX FINGER LACERATION HPI Patient is a 32-year-old female who presents with laceration in her left second digit specifically diagonally through her nail bed she sustained today while cutting with a knife in the kitchen. She is right-hand dominant. No numbness or tingling. She states she got a last tetanus vaccination within 1 year. Denies any possibility retained foreign body. She has full range of motion. ROS All systems reviewed and are negative except as per history of present illness. Medications Home Meds Active Scripts Bacitracin* (Bacitracin Zinc Oint*) 28.35 Gm Oint, 1 APPLIC TOP BID, #1 TUB APPLI TO Prov:BÁRBARA FOREMAN PA-C 07/09/17 Reported Medications Ferrous Sulfate (Iron) 325 Mg Capsule.er, 325 MG PO, CAP 04/18/17 Multivit/Min/Fol Ac/Iron/Pren* ( S*) 1 Tab Tab, 1 TAB PO DAILY, TAB 04/18/17 Allergies Allergies: Coded Allergies: No Known Allergy (Unverified , 05/27/17) PMhx/Soc History of Surgery: Yes (c section 05/16/17) Anesthesia Reaction: No Hx Neurological Disorder: No Hx Respiratory Disorders: No Hx Cardiac Disorders: Yes (HTN) Hx Psychiatric Problems: No Hx Miscellaneous Medical Probl: No Hx Alcohol Use: No Hx Substance Use: No Hx Tobacco Use: No Smoking Status: Never smoker FmHx Family History: No diabetes Physical Exam Vitals Vital Signs Date Time Temp Pulse Resp B/P Pulse Ox O2 Delivery O2 Flow Rate FiO2 08/10/17 19:07 98.0 88 161/81 100 Physical Exam Const: [] Head: Atraumatic Eyes: Normal Conjunctiva Neck: Full range of motion..~ No meningismus. Resp: Clear to auscultation bilaterally Cardio: Regular rate and rhythm, no murmurs Skin: Left second digit has a linear laceration diagonally through the nailbed , both portions of the nail are intact, she has full range of motion in both extension and flexion against resistance in the joint over the laceration, no evidence of retained foreign body Procedures/MDM 32-year-old female presents with laceration through her nail bed. Her tetanus is up-to-date. Low suspicion for fracture or tendon injury. She has good range of motion of the finger both active passively and against resistance. Her finger was irrigated with normal saline. Finger was prepped with Betadine 1 % plain lidocaine was used to perform a digital block. A series of simple interrupted sutures using 3-0 Prolene were then used through the nail bed. She should return in 2 days for a wound check in 7-10 days for removal of sutures. She tolerated the procedure well and the wound was appropriately dressed and bandaged. Patient counseled regarding my diagnostic impression and care plan. Prior to discharge all questions answered. Pt agrees with treatment plan and understands strict return precautions. Pt is instructed to follow up with primary care provider within 24-48 hours. Precautionary instructions provided including instructions to return to the ER if not improving or for any worsening or changing symptoms or concerns. Departure Diagnosis: Primary Impression: Laceration Condition: Stable CHRISTIN STEELE PA-C Aug 10, 2017 22:01
[2017-08-10] MEDS ORDERED: IBUP-1542 PO (22:02)
== END 2017-08-10 22:27 | disposition home or self-care (01) ==
LOC: FTE 18:40
DX: S61.211A Laceration without foreign body of left index finger without damage to nail, initial encounter (principal); I10 Essential (primary) hypertension; W26.0XXA Contact with knife, initial encounter; Y92.000 Kitchen of unspecified non-institutional (private) residence as the place of occurrence of the external cause
CPT/HCPCS: 12001; Z7502

== ENCOUNTER 2017-08-12 20:49 | Emergency (ER) | payer MEDICAID ==
[~2017-08-12] VITALS: Ht 157.5 cm; Wt 65.0 kg
[~2017-08-12 20:49] MED LIST changes: +IBUP-1542 PO
[2017-08-12 20:52] VITALS: Ht 157.5 cm; Wt 65.0 kg
--- NOTE | 2017-08-12 22:52 | ERD ---
ER Documentation Chief Complaint Chief Complaint Request wound check to left index finger HPI This is a 32-year-old female presenting to emerge department for wound check of left index finger. Patient had laceration 2 days ago with laceration repair using sutures. Denies drainage, bleeding, pain. No fevers or chills. No numbness or tingling. No loss of sensation. Patient is up-to-date on tetanus vaccination. ROS All systems reviewed and are negative except as per history of present illness. Medications Home Meds Active Scripts Ibuprofen* (Motrin*) 600 Mg Tab, 600 MG PO Q6, #30 TAB Prov:CHRISTIN STEELE PA-C 08/10/17 Bacitracin* (Bacitracin Zinc Oint*) 28.35 Gm Oint, 1 APPLIC TOP BID, #1 TUB APPLI TO Prov:BÁRBARA FOREMAN PA-C 07/09/17 Reported Medications Ferrous Sulfate (Iron) 325 Mg Capsule.er, 325 MG PO, CAP 04/18/17 Multivit/Min/Fol Ac/Iron/Pren* ( S*) 1 Tab Tab, 1 TAB PO DAILY, TAB 04/18/17 Allergies Allergies: Coded Allergies: No Known Allergy (Unverified , 05/27/17) PMhx/Soc History of Surgery: Yes () Anesthesia Reaction: No Hx Neurological Disorder: No Hx Respiratory Disorders: No Hx Cardiac Disorders: Yes (HTN) Hx Psychiatric Problems: No Hx Miscellaneous Medical Probl: No Hx Alcohol Use: No Hx Substance Use: No Hx Tobacco Use: No Smoking Status: Never smoker Physical Exam Vitals Vital Signs Date Time Temp Pulse Resp B/P Pulse Ox O2 Delivery O2 Flow Rate FiO2 08/12/17 20:52 98.1 81 18 178/99 97 Physical Exam Const: NAD Head: Atraumatic Eyes: Normal Conjunctiva Skin: [address] to left 2nd digit, distally through nail bed. Dried bloody drainage. No active bleeding or drainage. No warmth. No swelling. Ext: No cyanosis, or edema Neur: Awake and alert Psych: Normal Mood and Affect Procedures/MDM MDM: This is a 32-year-old female presenting to emergency department for wound check of left index finger. Patient had laceration repair using sutures 2 days ago. No signs or symptoms of infection. Wound shows no evidence of infection, foreign body, neurologic injury, vascular injury, open joint or tendon laceration. Patient appropriate for outpatient follow up. Return to ED for any high fever, chest pain, difficulty breathing, shortness breath, wheezing, vomiting, diarrhea, abdominal pain or any new or worsening symptoms. Patient verbalizes understanding. All questions answered at discharge. Disclaimer: Inadvertent spelling and grammatical errors are likely due to EHR/ dictation software use and do not reflect on the overall quality of patient care. Also, please note that the electronic time recorded on this note does not necessarily reflect the actual time of the patient encounter. Departure Diagnosis: Primary Impression: Encounter for wound re-check Condition: Stable Referrals: [facility] YOU HAVE RECEIVED A MEDICAL SCREENING EXAM AND THE RESULTS INDICATE THAT YOU DO NOT HAVE A CONDITION THAT REQUIRES URGENT TREATMENT IN THE EMERGENCY DEPARTMENT. FURTHER EVALUATION AND TREATMENT OF YOUR CONDITION CAN WAIT UNTIL YOU ARE SEEN IN YOUR DOCTORS OFFICE WITHIN THE NEXT 1-2 DAYS. IT IS YOUR RESPONSIBILITY TO MAKE AN APPOINTMENT FOR FOLOW-UP CARE. IF YOU HAVE A PRIMARY DOCTOR --you should call your primary doctor and schedule an appointment IF YOU DO NOT HAVE A PRIMARY DOCTOR YOU CAN CALL OUR PHYSICIAN REFERRAL HOTLINE AT IF YOU CAN NOT AFFORD TO SEE A PHYSICIAN YOU CAN CHOSE FROM THE FOLLOWING [facility] [address] [facility]. [facility] [address] [facility] [facility] [address] [facility] [address] [facility] [facility] [address] [facility]. [facility]. [address] [facility] [facility] YOU HAVE RECEIVED A MEDICAL SCREENING EXAM AND THE RESULTS INDICATE THAT YOU DO NOT HAVE A CONDITION THAT REQUIRES URGENT TREATMENT IN THE EMERGENCY DEPARTMENT. FURTHER EVALUATION AND TREATMENT OF YOUR CONDITION CAN WAIT UNTIL YOU ARE SEEN IN YOUR DOCTORS OFFICE WITHIN THE NEXT 1-2 DAYS. IT IS YOUR RESPONSIBILITY TO MAKE AN APPOINTMENT FOR FOLOW-UP CARE. IF YOU HAVE A PRIMARY DOCTOR --you should call your primary doctor and schedule and appointment IF YOU DO NOT HAVE A PRIMARY DOCTOR YOU CAN CALL OUR PHYSICIAN REFERRAL HOTLINE AT . IF YOU CAN NOT AFFORD TO SEE A PHYSICIAN YOU CAN CHOSE FROM THE FOLLOWING [facility] INSTITUTIONS: [facility] [address] [place] [address] [facility] [address] [place] [address] [facility] [address] [place] [address] Additional Instructions: Call your primary care doctor TOMORROW for an appointment during the next 2-3 days.See the doctor sooner or return here if your condition worsens before your appointment time. Return to ED for any high fever, chest pain, difficulty breathing, shortness breath, wheezing, vomiting, diarrhea, abdominal pain or any new or worsening symptoms. NIMISHA JADE NP Aug 12, 2017 22:51
--- NOTE | 2017-08-12 22:52 | ERD ---
ER Documentation Chief Complaint Chief Complaint Request wound check to left index finger HPI This is a 32-year-old female presenting to emerge department for wound check of left index finger. Patient had laceration 2 days ago with laceration repair using sutures. Denies drainage, bleeding, pain. No fevers or chills. No numbness or tingling. No loss of sensation. Patient is up-to-date on tetanus vaccination. ROS All systems reviewed and are negative except as per history of present illness. Medications Home Meds Active Scripts Ibuprofen* (Motrin*) 600 Mg Tab, 600 MG PO Q6, #30 TAB Prov:CHRISTIN STEELE PA-C 08/10/17 Bacitracin* (Bacitracin Zinc Oint*) 28.35 Gm Oint, 1 APPLIC TOP BID, #1 TUB APPLI TO Prov:BÁRBARA FOREMAN PA-C 07/09/17 Reported Medications Ferrous Sulfate (Iron) 325 Mg Capsule.er, 325 MG PO, CAP 04/18/17 Multivit/Min/Fol Ac/Iron/Pren* ( S*) 1 Tab Tab, 1 TAB PO DAILY, TAB 04/18/17 Allergies Allergies: Coded Allergies: No Known Allergy (Unverified , 05/27/17) PMhx/Soc History of Surgery: Yes () Anesthesia Reaction: No Hx Neurological Disorder: No Hx Respiratory Disorders: No Hx Cardiac Disorders: Yes (HTN) Hx Psychiatric Problems: No Hx Miscellaneous Medical Probl: No Hx Alcohol Use: No Hx Substance Use: No Hx Tobacco Use: No Smoking Status: Never smoker Physical Exam Vitals Vital Signs Date Time Temp Pulse Resp B/P Pulse Ox O2 Delivery O2 Flow Rate FiO2 08/12/17 20:52 98.1 81 18 178/99 97 Physical Exam Const: NAD Head: Atraumatic Eyes: Normal Conjunctiva Skin: [address] to left 2nd digit, distally through nail bed. Dried bloody drainage. No active bleeding or drainage. No warmth. No swelling. Ext: No cyanosis, or edema Neur: Awake and alert Psych: Normal Mood and Affect Procedures/MDM MDM: This is a 32-year-old female presenting to emergency department for wound check of left index finger. Patient had laceration repair using sutures 2 days ago. No signs or symptoms of infection. Wound shows no evidence of infection, foreign body, neurologic injury, vascular injury, open joint or tendon laceration. Patient appropriate for outpatient follow up. Return to ED for any high fever, chest pain, difficulty breathing, shortness breath, wheezing, vomiting, diarrhea, abdominal pain or any new or worsening symptoms. Patient verbalizes understanding. All questions answered at discharge. Disclaimer: Inadvertent spelling and grammatical errors are likely due to EHR/ dictation software use and do not reflect on the overall quality of patient care. Also, please note that the electronic time recorded on this note does not necessarily reflect the actual time of the patient encounter. Departure Diagnosis: Primary Impression: Encounter for wound re-check Condition: Stable Referrals: [facility] YOU HAVE RECEIVED A MEDICAL SCREENING EXAM AND THE RESULTS INDICATE THAT YOU DO NOT HAVE A CONDITION THAT REQUIRES URGENT TREATMENT IN THE EMERGENCY DEPARTMENT. FURTHER EVALUATION AND TREATMENT OF YOUR CONDITION CAN WAIT UNTIL YOU ARE SEEN IN YOUR DOCTORS OFFICE WITHIN THE NEXT 1-2 DAYS. IT IS YOUR RESPONSIBILITY TO MAKE AN APPOINTMENT FOR FOLOW-UP CARE. IF YOU HAVE A PRIMARY DOCTOR --you should call your primary doctor and schedule an appointment IF YOU DO NOT HAVE A PRIMARY DOCTOR YOU CAN CALL OUR PHYSICIAN REFERRAL HOTLINE AT IF YOU CAN NOT AFFORD TO SEE A PHYSICIAN YOU CAN CHOSE FROM THE FOLLOWING [facility] [address] [facility]. [facility] [address] [facility]. [facility] [address] [facility] [address] [facility] [address] [facility]. [facility]. [address] [facility]. [facility] YOU HAVE RECEIVED A MEDICAL SCREENING EXAM AND THE RESULTS INDICATE THAT YOU DO NOT HAVE A CONDITION THAT REQUIRES URGENT TREATMENT IN THE EMERGENCY DEPARTMENT. FURTHER EVALUATION AND TREATMENT OF YOUR CONDITION CAN WAIT UNTIL YOU ARE SEEN IN YOUR DOCTORS OFFICE WITHIN THE NEXT 1-2 DAYS. IT IS YOUR RESPONSIBILITY TO MAKE AN APPOINTMENT FOR FOLOW-UP CARE. IF YOU HAVE A PRIMARY DOCTOR --you should call your primary doctor and schedule and appointment IF YOU DO NOT HAVE A PRIMARY DOCTOR YOU CAN CALL OUR PHYSICIAN REFERRAL HOTLINE AT . IF YOU CAN NOT AFFORD TO SEE A PHYSICIAN YOU CAN CHOSE FROM THE FOLLOWING [facility] INSTITUTIONS: [facility] [address] [place] [address] [facility] [address] [place] [address] [facility] [address] [place] [address] Additional Instructions: Call your primary care doctor TOMORROW for an appointment during the next 2-3 days.See the doctor sooner or return here if your condition worsens before your appointment time. Return to ED for any high fever, chest pain, difficulty breathing, shortness breath, wheezing, vomiting, diarrhea, abdominal pain or any new or worsening symptoms. NIMISHA JADE NP Aug 12, 2017 22:51
--- NOTE | 2017-08-12 22:52 | ERD ---
ER Documentation Chief Complaint Chief Complaint Request wound check to left index finger HPI This is a 32-year-old female presenting to emerge department for wound check of left index finger. Patient had laceration 2 days ago with laceration repair using sutures. Denies drainage, bleeding, pain. No fevers or chills. No numbness or tingling. No loss of sensation. Patient is up-to-date on tetanus vaccination. ROS All systems reviewed and are negative except as per history of present illness. Medications Home Meds Active Scripts Ibuprofen* (Motrin*) 600 Mg Tab, 600 MG PO Q6, #30 TAB Prov:CHRISTIN STEELE PA-C 08/10/17 Bacitracin* (Bacitracin Zinc Oint*) 28.35 Gm Oint, 1 APPLIC TOP BID, #1 TUB APPLI TO Prov:BÁRBARA FOREMAN PA-C 07/09/17 Reported Medications Ferrous Sulfate (Iron) 325 Mg Capsule.er, 325 MG PO, CAP 04/18/17 Multivit/Min/Fol Ac/Iron/Pren* ( S*) 1 Tab Tab, 1 TAB PO DAILY, TAB 04/18/17 Allergies Allergies: Coded Allergies: No Known Allergy (Unverified , 05/27/17) PMhx/Soc History of Surgery: Yes () Anesthesia Reaction: No Hx Neurological Disorder: No Hx Respiratory Disorders: No Hx Cardiac Disorders: Yes (HTN) Hx Psychiatric Problems: No Hx Miscellaneous Medical Probl: No Hx Alcohol Use: No Hx Substance Use: No Hx Tobacco Use: No Smoking Status: Never smoker Physical Exam Vitals Vital Signs Date Time Temp Pulse Resp B/P Pulse Ox O2 Delivery O2 Flow Rate FiO2 08/12/17 20:52 98.1 81 18 178/99 97 Physical Exam Const: NAD Head: Atraumatic Eyes: Normal Conjunctiva Skin: [address] to left 2nd digit, distally through nail bed. Dried bloody drainage. No active bleeding or drainage. No warmth. No swelling. Ext: No cyanosis, or edema Neur: Awake and alert Psych: Normal Mood and Affect Procedures/MDM MDM: This is a 32-year-old female presenting to emergency department for wound check of left index finger. Patient had laceration repair using sutures 2 days ago. No signs or symptoms of infection. Wound shows no evidence of infection, foreign body, neurologic injury, vascular injury, open joint or tendon laceration. Patient appropriate for outpatient follow up. Return to ED for any high fever, chest pain, difficulty breathing, shortness breath, wheezing, vomiting, diarrhea, abdominal pain or any new or worsening symptoms. Patient verbalizes understanding. All questions answered at discharge. Disclaimer: Inadvertent spelling and grammatical errors are likely due to EHR/ dictation software use and do not reflect on the overall quality of patient care. Also, please note that the electronic time recorded on this note does not necessarily reflect the actual time of the patient encounter. Departure Diagnosis: Primary Impression: Encounter for wound re-check Condition: Stable Referrals: [facility] YOU HAVE RECEIVED A MEDICAL SCREENING EXAM AND THE RESULTS INDICATE THAT YOU DO NOT HAVE A CONDITION THAT REQUIRES URGENT TREATMENT IN THE EMERGENCY DEPARTMENT. FURTHER EVALUATION AND TREATMENT OF YOUR CONDITION CAN WAIT UNTIL YOU ARE SEEN IN YOUR DOCTORS OFFICE WITHIN THE NEXT 1-2 DAYS. IT IS YOUR RESPONSIBILITY TO MAKE AN APPOINTMENT FOR FOLOW-UP CARE. IF YOU HAVE A PRIMARY DOCTOR --you should call your primary doctor and schedule an appointment IF YOU DO NOT HAVE A PRIMARY DOCTOR YOU CAN CALL OUR PHYSICIAN REFERRAL HOTLINE AT IF YOU CAN NOT AFFORD TO SEE A PHYSICIAN YOU CAN CHOSE FROM THE FOLLOWING [facility] [address] [facility]. [facility] [address] [facility] [address] [facility] [address] [facility] [address] [facility]. [address] [facility]. [facility] YOU HAVE RECEIVED A MEDICAL SCREENING EXAM AND THE RESULTS INDICATE THAT YOU DO NOT HAVE A CONDITION THAT REQUIRES URGENT TREATMENT IN THE EMERGENCY DEPARTMENT. FURTHER EVALUATION AND TREATMENT OF YOUR CONDITION CAN WAIT UNTIL YOU ARE SEEN IN YOUR DOCTORS OFFICE WITHIN THE NEXT 1-2 DAYS. IT IS YOUR RESPONSIBILITY TO MAKE AN APPOINTMENT FOR FOLOW-UP CARE. IF YOU HAVE A PRIMARY DOCTOR --you should call your primary doctor and schedule and appointment IF YOU DO NOT HAVE A PRIMARY DOCTOR YOU CAN CALL OUR PHYSICIAN REFERRAL HOTLINE AT . IF YOU CAN NOT AFFORD TO SEE A PHYSICIAN YOU CAN CHOSE FROM THE FOLLOWING [facility] INSTITUTIONS: [facility] [address] [place] [address] [facility] [address] [place] [address] [facility] [address] [place] [address] Additional Instructions: Call your primary care doctor TOMORROW for an appointment during the next 2-3 days.See the doctor sooner or return here if your condition worsens before your appointment time. Return to ED for any high fever, chest pain, difficulty breathing, shortness breath, wheezing, vomiting, diarrhea, abdominal pain or any new or worsening symptoms. NIMISHA JADE NP Aug 12, 2017 22:51
== END 2017-08-12 22:48 | disposition home or self-care (01) ==
LOC: FTE 20:49
DX: Z48.01 Encounter for change or removal of surgical wound dressing (principal); I10 Essential (primary) hypertension
CPT/HCPCS: 99281

== ENCOUNTER 2018-12-21 06:06 | Inpatient (IN) | payer MEDICAID ==
[2018-12-21] VITALS (9 sets, daily range): BP systolic 135–155; BP diastolic 83–95; PULSE 88–96; RESP 18–21; Ht 162.6 cm; Wt 83.0 kg
[~2018-12-21] VITALS: Ht 162.6 cm; Wt 83.0 kg
[2018-12-21] MEDS: LACTATED RINGER'S 1,000 ML IV SCH ×2 (01:07→07:52)
[2018-12-21] MEDS ORDERED: OXYTOCIN 30 UNITS/LR 500 ML IV SCH ×2 (07:00→12:36)
[2018-12-21] MEDS ORDERED: CARBOPROST 250 MCG INJ IM PRN ×2 (07:00→13:00)
[2018-12-21] MEDS ORDERED: MISOPROSTOL 200 MCG TAB PR PRN ×2 (07:00→13:00)
[2018-12-21] MEDS ORDERED: METHYLERGONOVINE 0.2 MG INJ IM PRN ×2 (07:00→13:00)
[2018-12-21] MEDS ORDERED: CEFAZOLIN 2 GM/50 ML (PMX) 50 ML IVPB SCH (07:00)
[2018-12-21] MEDS ORDERED: OXYTOCIN 30 UNITS/LR 500 ML IV PRN ×2 (07:00→13:00)
--- NOTE | 2018-12-21 07:22 | PREAC ---
Date/Time of Note Date/Time of Note DATE: 12/21/18 TIME: 07:21 Anesthesia Eval and Record Evaluation Time Pre-Procedure Interview DATE: 12/21/18 TIME: 07:21 Age 33 Sex female NPO: 8 hrs Preoperative diagnosis repeat c secton Planned procedure c section Past Medical History Past Medical History: Includes : PIH Surgery & Anesthesia Issues No known issue Meds Anticoagulation: No Beta Linda within 24 hr: No Reason Beta Linda not given: Pt. not on B-Linda Active Scripts Ibuprofen* (Motrin*) 600 Mg Tab, 600 MG PO Q6, #30 TAB Prov:CHRISTIN STEELE PA-C 08/10/17 Bacitracin* (Bacitracin Zinc Oint*) 28.35 Gm Oint, 1 APPLIC TOP BID, #1 TUB APPLI TO Prov:BÁRBARA FOREMAN PA-C 07/09/17 Reported Medications Ferrous Sulfate (Iron) 325 Mg Capsule.er, 325 MG PO, CAP 04/18/17 Multivit/Min/Fol Ac/Iron/Pren* ( S*) 1 Tab Tab, 1 TAB PO DAILY, TAB 04/18/17 Current Medications Lactated Ringer's 1,000 ml @ 125 mls/hr Q8H IV ; Start 12/21/18 at 06:48; Status UNV Cefazolin Sodium/ Dextrose 50 ml @ 100 mls/hr ONCE IVPB ; Start 12/21/18 at 07:00; Status UNV Oxytocin/Lactated Ringer's 500 ml @ 125 mls/hr POST IV ; Start 12/21/18 at 07:00; Status UNV Oxytocin/Lactated Ringer's 500 ml @ 0 mls/hr ONCE PRN IV .VAGINAL BLEEDING; Start 12/21/18 at 07:00; Status UNV Methylergonovine Maleate (Methergine) 0.2 mg ONCE PRN IM .VAGINAL BLEEDING; Start 12/21/18 at 07:00; Status UNV Carboprost Tromethamine (Hemabate) 250 mcg ONCE PRN IM .VAGINAL BLEEDING; Start 12/21/18 at 07:00; Status UNV Misoprostol (Cytotec) 1,000 mcg ONCE PRN LA .VAGINAL BLEEDING; Start 12/21/18 at 07:00; Status UNV Meds reviewed: Yes Allergies Coded Allergies: No Known Allergy (Unverified , 05/27/17) Allergies Reviewed: Yes Labs/Studies Labs Reviewed: Reviewed by anesthesiologist test: Positive Studies: ECG (n/a), CXR (n/a) Pre-procedure Exam Airway: Adequate mouth opening Mallampati: Mallampati I Teeth: Normal Lung: Normal Heart: Normal ASA Physical Status ASA physical status: 2 Emergency: None Planned Anesthetic Neuraxial: Spinal Planned Pain Management Sub-arachniod narcotics Pre-operative Attestations Prior to commencing anesthesia and surgery, the patient was re-evaluated, there was verification of: *The patient's identity *The results of appropriate recent lab work and preoperative vital signs *The above evaluation not changing prior to induction *Anesthetic plan, risk benefits, alternative and complications discussed with patient/family; questions answered; patient/family understands, accepts and wishes to proceed. KAROLINA ESCALERA MD Dec 21, 2018 07:22
--- NOTE | 2018-12-21 07:28 | HP ---
Date/Time of Note Date/Time of Note DATE: 12/21/18 TIME: 07:20 OB - History Hx of Present Free Text/Dictation 33-year-old 2 para 1001 with chronic hypertension and previous delivery at 38 weeks and 1 day desires repeat delivery. The patient was seen for care yesterday her blood pressure was in the range of 1 [id number]. She is currently on labetalol 200 mg every 12 hours. She states good movement. She denies nausea, vomiting, shortness of breath, chest pain, headache, visual changes, vaginal bleeding or LOF. Chief Complaint: She has been scheduled for repeat delivery Estimated Due Date: Jan 03, 2019 : 2 Para: 1 Spontaneous : 0 Therapeutic : 0 Care: Good Care Ultrasounds: Normal mid trimester US Medical Complications: Other (Chronic hypertension) Past Family/Social History * Past Medical, Surgical, Family and Obstetric Histories reviewed from chart. Blood Type: O+ Rubella: immune RPR/VDRL: Negative GBS Status: Negative HBsAG: Negative OB Admission Exam Vital Signs Vital Signs Blood pressure 152/98, pulse rate 70 Z/minutes, respiratory rate 16/minutes, temperature 98.6 Physical Exam HEENT: WNL Heart: Rhythm Normal Lungs: Clear Abdomen: WNL Extremities: Normal Reflexes: Normal Membranes: Intact Heart Rate: 130's Accelerations: Accelerations Present Decelerations: No Decelerations Varibility: Moderate Contractions on Admission: >10 Minutes Apart Intensity: Mild OB Assessment/Plan Other plan: 33 years old with chronic hypertension and previous delivery desires repeat delivery. - FHR: No sign of metabolic acidosis- Category I - Continuous EFM, toco - CBC, blood type and screen - Please see the orders - O+/Rubella: Immune - GBS: Negative The risk of delivery including but not limited to bleeding, infection, injury to other organs (bowel, bladder, ureter, vessels, nerves), injury to fetus, blood transfusion, blood transfusion related infection, risk of anesthesia, adhesion, needs for future , removal of uterus or any other indicated surgery was discussed with the patient and her family. She expressed understanding. All of her questions were answered. She signed the informed consent. PHYSICIAN'S VERIFICATION OF INFORMED CONSENT The patient and her counseled regarding the procedure, its indications, risks, potential complications and alternatives and any questions were answered. Consent was obtained. PLANNED PROCEDURE/TREATMENT: delivery with possible using vacuum/forceps and any other indicated surgery PHYSICIAN'S VERIFICATION OF INFORMED CONSENT FOR BLOOD TRANSFUSION: There is a reasonable possibility that blood transfusion will be necessary as a result of the patient's procedure. I have discussed the following with the patient/patient's legal provider service representative: An explanation of the benefits and risks of the transfusion of blood or blood products and the possible alternatives. All questions have been answered to the patient's satisfaction. INFORMED CONSENT:The patient has been informed of: The nature of the proposed care, treatment, services, medications, interventions or procedures. Potential benefits, risks or side effects, including potential problems related to recuperation. The likelihood of achieving care treatment and service goals. Reasonable alternatives to the proposed care, treatment and service. The relevant risks, benefits and side effects related to alternatives, including the possible results of not receiving care, treatment and services. When indicated, any limitations on the confidentiality of information learned from or about the patient. If appropriate, the risks, benefits and alternatives of the drugs to be used for sedation/analgesia including moderate sedation. If appropriate, patient has been provided information on the risks, benefits and alternatives to the transfusion of blood and/or blood products. If appropriate, patient has been provided information regarding the [employer] [place] Blood Act. BHARAT LEVIN Dec 21, 2018 07:28
[2018-12-21] MEDS ORDERED: CITRIC ACID/NA CITRATE 30 ML CUP ONE (08:12)
[2018-12-21] MEDS ORDERED: CITRIC ACID/NA CITRATE 30 ML CUP PO ONE (08:30)
[2018-12-21] MEDS ORDERED: OXYTOCIN 30 UNITS/LR 500 ML IV ONE ×2 (08:34→09:36)
[2018-12-21] MEDS ORDERED: morphine SULFATE/PF (10 MG/10 ML) INJ ONE (08:34)
[2018-12-21] MEDS ORDERED: METOCLOPRAMIDE 10 MG INJ ONE (08:34)
[2018-12-21] MEDS ORDERED: ONDANSETRON 4 MG INJ ONE (08:34)
[2018-12-21] MEDS ORDERED: KETOROLAC 30 MG INJ ONE (08:35)
[2018-12-21] MEDS ORDERED: FENTAnyl 50 MCG/ML VIAL ONE (08:58)
[2018-12-21] MEDS ORDERED: PHENYLephrine (100 MCG/ML) 10ML SYG ONE (09:06)
[2018-12-21] MEDS ORDERED: LANOLIN HPA 1 PKT TOP PRN (13:00)
[2018-12-21] MEDS ORDERED: METHYLERGONOVINE 0.2 MG TAB PO PRN (13:00)
[2018-12-21] MEDS: DEXTROSE 5%-LR 1,000 ML IV SCH ×2 (13:10→20:36)
[2018-12-21] MEDS ORDERED: LABETALOL 200 MG TAB PO SCH (14:00)
[2018-12-21] MEDS: IBUPROFEN 800 MG TAB PO SCH ×2 (14:00→21:53)
--- NOTE | 2018-12-21 16:22 | PAC ---
Date/Time of Note Date/Time of Note DATE: 12/21/18 TIME: 16:22 Post-Anesthesia Notes Post-Anesthesia Note Last documented vital signs Vital Signs Date Temp Pulse Resp B/P (MAP) Pulse Ox O2 O2 Flow FiO2 Time Delivery Rate 12/21/18 99.1 96 18 155/94 100 Room Air 13:10 (114) 12/21/18 100 12:05 Activity: WNL Respiratory function: WNL Cardiovascular function: WNL Mental status: Baseline Pain reasonably controlled: Yes Hydration appropriate: Yes Nausea/Vomiting absent: No KAROLINA ESCALERA MD Dec 21, 2018 16:22
[2018-12-21] MEDS ORDERED: DIPHENHYDRAMINE 50 MG INJ IV PRN (16:30)
[2018-12-21] MEDS ORDERED: morphine 2 MG INJ IV PRN ×3 (16:30)
[2018-12-21] MEDS ORDERED: ONDANSETRON 4 MG INJ IV PRN (16:30)
[2018-12-21] MEDS ORDERED: NALOXONE (0.4 MG/ML) INJ IV PRN (16:30)
[2018-12-21] MEDS: SENNA/DOCUSATE NA (8.6MG/50MG) TAB PO SCH (21:53)
[2018-12-21] MEDS: LABETALOL 200 MG TAB PO SCH (21:56)
[2018-12-22] VITALS: BP 126/70; PULSE 91; RESP 18
[2018-12-22] MEDS: LACTATED RINGER'S 1,000 ML IV SCH ×3 (01:07→14:06)
[2018-12-22 04:00] VITALS: BP 122/63; PULSE 77; RESP 17
[2018-12-22] MEDS: DEXTROSE 5%-LR 1,000 ML IV SCH ×2 (05:42→12:36)
[2018-12-22] MEDS: IBUPROFEN 800 MG TAB PO SCH ×2 (05:43→14:05)
[2018-12-22] MEDS: LABETALOL 200 MG TAB PO SCH ×2 (05:43→14:05)
[2018-12-22 08:00] VITALS: BP 107/62; PULSE 85; RESP 17
[2018-12-22] MEDS ORDERED: DIPHTH/TET/ACEL PERTUSS (ADULT) 0.5 ML VIAL IM* ONE (11:00)
[2018-12-22] MEDS ORDERED: HYDROCODONE/APAP (5/325) TAB NGT PRN (11:00)
[2018-12-22] MEDS: SENNA/DOCUSATE NA (8.6MG/50MG) TAB PO SCH ×2 (14:05→20:51)
[2018-12-22] MEDS: HYDROCODONE/APAP (5/325) TAB GTB SCH ×2 (14:05→22:00)
[2018-12-22 15:51] VITALS: BP 124/79; PULSE 91; RESP 18
--- NOTE | 2018-12-22 17:18 | PN ---
Date/Time of Note Date/Time of Note DATE: 12/22/18 TIME: 17:16 OB Subjective Subjective Subjective POD#1 Patient is doing well. She denies nausea, vomiting, shortness of breath, chest pain, headache. She has been ambulating without difficulty, tolerating regular diet. Pain is well controlled on current medications OB Objective Objective Objective VS - Last 72 Hours, by Label Date Temp Pulse Resp B/P (MAP) Pulse Ox O2 O2 Flow FiO2 Time Delivery Rate 12/22/18 98.1 91 18 124/79 Room Air 15:51 (94) 12/22/18 99.1 85 17 107/62 96 Room Air 08:00 (77) 12/22/18 98.3 77 17 122/63 98 Room Air 04:00 (82) 12/22/18 98.6 91 18 126/70 97 Room Air 00:00 (88) 12/21/18 99.0 95 18 153/94 96 Room Air 20:20 (113) 12/21/18 99.1 94 21 148/94 96 Room Air 15:40 (112) 12/21/18 99.1 96 18 155/94 Room Air 13:10 (114) 12/21/18 88 18 137/83 100 Room Air 12:05 (101) 12/21/18 98.5 90 18 145/84 100 Room Air 11:50 (104) 12/21/18 88 19 140/95 99 Room Air 11:35 (110) 12/21/18 90 19 146/93 99 Room Air 11:20 (110) 12/21/18 88 18 141/87 99 Room Air 11:05 (105) 12/21/18 98.5 94 19 135/89 07:42 (104) General: AAO X 3, comfortable, NAD, appropriate mood and affect. Heart: RRR +S1, +S2, no murmurs. Lungs: Clear to auscultation (B/L), no rales, rhonchi or wheezing. ABD: +BS. Soft, non-tender. Uterus 2 cm below umbilicus Incision: Clear, dry, intact. No erythema, drainage or induration. Flank: No CVA tenderness (B/L) LE: Mild edema. No clubbing, cyanosis, thigh or calf tenderness (B/L). Homans 'sign is negative OB Assessment/Plan Other plan: 33-year-old 2 para 2002 with chronic hypertension s/p repeat delivery POD#1 - AF, VSS - Baby is doing well, at bed side. She is bonding well - Contraception methods with R/B/A/FR discussed - Continue care BHARAT LEVIN Dec 22, 2018 17:18
--- NOTE | 2018-12-22 17:30 | OPR ---
Operative Report Planned Procedure Procedure date Dec 22, 2018 Procedure(s) Repeat low transverse delivery Performed by see signature line Cadd Instructor: AMANDA FOREMAN MD Anesthesiologist: KAROLINA ESCALERA MD Pre-procedure diagnosis 33 years old with chronic hypertension and previous delivery desires repeat delivery. [id number] Anesthesia Type: [id number] spinal Post-Procedure Post-procedure diagnosis 33 years old with chronic hypertension and previous delivery desires repeat delivery. Findings 1. Normal uterus, fallopian tubes and ovaries 2. Viable male in cephalic presentation. 9 at one minute and 9 in 5 minutes. Weight: 7 pounds 5 ounces. Time of delivery: 09:02 3. Placenta with three vessel cord 4. Amniotic fluid - Clear Estimated Blood Loss: 500 - 600 mls Specimen(s) none Grafts/Implant(s) none Complication(s) none Pt Condition post procedure: stable Procedure Description INDICATION AND HISTORY: A 33 years old with chronic hypertension and previous delivery desires repeat delivery. The risk of delivery including but not limited to bleeding, infection, injury to other organs (bowel, bladder, ureter, vessels, nerves), injury to fetus, blood transfusion, blood transfusion related infection, risk of anesthesia, adhesion, needs for future , removal of uterus or any other indicated surgery was discussed with the patient and her family. She expressed understanding. All of her questions were answere d. She signed the informed consent. DESCRIPTION OF OPERATION: The patient was taken to the operating room, where she was identified and the procedure was verified. The patient received two gram of Ancef 30 minutes prior to surgery. Spinal anesthesia was placed. The patient placed in the dorsal supine position with a left tilt. The heart rate was 130 bpm. The patient was then prepped and draped in the normal sterile fashion. A Pfannenstiel skin incision was made and carried down to the fascia with knife. The fascia was incised in the midline and the fascial incision was carried laterally with knife scissors. The superior portion of the fascial incision was then grasped with Jeffery clamps and tented up and dissected off the underlying rectus muscle with sharp dissection. The lower portion of the fascial incision was then made in a similar fashion. The rectus muscle was and the peritoneum was entered. The peritoneal incision was then stretched and an Orion retractor was inserted. Then, an incision was made in the lower uterine segment in a transverse fashion with a knife and extended bluntly. The was delivered atraumatically in cephalic presentation with the above findings. The umbilical cord was clamped and cut. The neonatology resuscitation team was present and the baby was handed to them. A cord blood sample was obtained for further evaluation. The placenta and membrane, which appeared normal were Removed. The uterus was exteriorized and cleared of all clot and debris. The uterus was then closed in a two layer fashion with 0- Monocryl. At the time of closure, hemostasis was noted. The gutters were irrigated. The peritoneum was reapproximated with 3-0 Vicryl. The muscle was reapproximated with 3-0 Vicryl. The fascia was approximated with 0-Vicryl in a running fashion. The subcutaneous tissue was re approximated with 3-0 vicryl. The skin was closed with 4-0 Monocryl. All instruments, sponges and needle counts were correct x3. The patient tolerated the procedure well. She transferred to the recovery room in stable condition. BHARAT LEVIN Dec 22, 2018 17:30
[2018-12-22 20:00] VITALS: BP 139/67; PULSE 83; RESP 20
--- NOTE | 2018-12-22 21:34 | OPPN ---
Date/Time of Note Date/Time of Note DATE: 12/22/18 TIME: 21:33 Anesthesia Follow up Anesthesia Follow up Last documented vital signs Vital Signs Date Temp Pulse Resp B/P (MAP) Pulse Ox O2 O2 Flow FiO2 Time Delivery Rate 12/22/18 98.1 91 18 124/79 Room Air 15:51 (94) 12/22/18 96 08:00 Respiratory function: WNL Cardiovascular function: WNL Comments A 33 year female POD#1 with duramorph for post op pain is fine. No pain, headache, N/V, itching, no neural deficit. KAROLINA ESCALERA MD Dec 22, 2018 21:34
[2018-12-22 21:41] VITALS: BP 139/67; PULSE 83; RESP 18
[2018-12-23] VITALS: BP 138/81; PULSE 88; RESP 18
[2018-12-23] MEDS: IBUPROFEN 800 MG TAB PO SCH ×4 (00:26→22:10)
[2018-12-23] MEDS: LABETALOL 200 MG TAB PO SCH ×4 (00:27→22:11)
[2018-12-23 04:00] VITALS: BP 123/72; PULSE 83; RESP 18
[2018-12-23] MEDS: HYDROCODONE/APAP (5/325) TAB GTB SCH ×3 (06:46→22:10)
[2018-12-23 08:30] VITALS: BP 127/73; PULSE 79; RESP 17
[2018-12-23] MEDS: SENNA/DOCUSATE NA (8.6MG/50MG) TAB PO SCH ×2 (08:50→21:00)
[2018-12-23 15:06] VITALS: BP 119/73; PULSE 83; RESP 17
[2018-12-23 20:10] VITALS: BP 137/80; PULSE 87; RESP 20
[2018-12-23 23:11] VITALS: BP 133/72; PULSE 89; RESP 18
[2018-12-24 04:05] VITALS: BP 140/73; PULSE 74; RESP 18
[2018-12-24] MEDS: HYDROCODONE/APAP (5/325) TAB GTB SCH (05:51)
[2018-12-24] MEDS: LABETALOL 200 MG TAB PO SCH (05:52)
[2018-12-24] MEDS: IBUPROFEN 800 MG TAB PO SCH (05:52)
[2018-12-24 08:30] VITALS: BP 136/82; PULSE 79; RESP 18
[2018-12-24] MEDS ORDERED: MEASLES,MUMPS,RUBELLA VACCINE INJ SC* ONE (09:00)
[2018-12-24] MEDS ORDERED: DIPHTH/TET/ACEL PERTUSS (ADULT) 0.5 ML VIAL IM* ONE (09:00)
[2018-12-24] MEDS: SENNA/DOCUSATE NA (8.6MG/50MG) TAB PO SCH (09:00)
--- NOTE | 2018-12-24 12:56 | QN ---
Documentation Comment POD#3 is stable afebrile tolerates diet No VB +BM +Voids VS stable Gen NAD Abd soft NT ND Incision intact Gentalia No blood at perineum -->Discharge Home -->Precautions discussed EDUARDO CLARK M.D. Dec 24, 2018 12:56
--- NOTE | 2018-12-24 12:57 | DS ---
Date/Time of Note Date/Time of Note DATE: 12/24/18 TIME: 12:56 Discharge Summary Admission/Discharge Info Admit Date/Time Dec 21, 2018 at 06:06 Discharge Date/Time 12/24/2018 Discharge Diagnosis Patient Condition: Good Hospital Course uneventful Home Meds Active Scripts Ibuprofen* (Motrin*) 600 Mg Tab, 600 MG PO Q6, #30 TAB Prov:CHRISTIN STEELE PA-C 08/10/17 Bacitracin* (Bacitracin Zinc Oint*) 28.35 Gm Oint, 1 APPLIC TOP BID, #1 TUB APPLI TO Prov:BÁRBARA FOREMAN PA-C 07/09/17 Reported Medications Ferrous Sulfate (Iron) 325 Mg Capsule.er, 325 MG PO, CAP 04/18/17 Multivit/Min/Fol Ac/Iron/Pren* ( S*) 1 Tab Tab, 1 TAB PO DAILY, TAB 04/18/17 Primary Care Provider Care Physician No Primary EDUARDO CLARK M.D. Dec 24, 2018 12:57
--- NOTE | 2018-12-26 11:22 | DELSUM ---
Delivery Summary A-C Datetime Report Generated by CPN: 12/26/2018 11:20 DELIVERY PERSONNEL Cotton Ginner Helper: Ghukasyan, Elda MATERNAL INFORMATION Delivery Anesthesia: Spinal Medications in Delivery: 30 UN PITOCIN AND SEE ANESTHESIA NOTES Delivery QBL (ml): 600 Placenta Cultured: No Maternal Complications: None RN Comments: SCHEDULED C/S FOR CHT LABOR SUMMARY EDC: 01/03/2019 00:00 No. Babies in Womb: 1 Attempted: No Labor Anesthesia: None LABOR INFORMATION Reason for Induction: Not Applicable Oxytocin: N/A Group B Beta Strep: Negative Antibiotics # of Doses: 1 Antibiotics Time of Last Dose: 12/21/2018 07:41 Steroids Given: None Reason Steroids Not Administered: Not Applicable MEMBRANES Membranes Rupture Method: Artificial Rupture of Membranes: 12/21/2018 09:00 Length of Rupture (hr): 0.03 Amniotic Fluid Color: Clear Amniotic Fluid Amount: Small Amniotic Fluid Odor: None STAGES OF LABOR Stage 3 hr: 0 Stage 3 min: 1 VAGINAL DELIVERY Episiotomy: None Laceration Extension: N/A CSECTION DELIVERY Primary Indication: Repeat Elective Other Primary Indication: HTN CSection Urgency: Elective CSection Incidence: Repeat Labor: No Labor Elective: Elective CSection Incision: Lower Uterine Transverse BABY A INFORMATION Delivery Date/Time: 12/21/2018 09:02 Method of Delivery: Born in Route : No : N/A Forceps: N/A Vacuum Extraction: N/A Shoulder Dystocia : N/A SHOULDER DYSTOCIA BABY A Delivery Date/Time: 12/21/2018 09:02 PRESENTATION/POSITION BABY A Presentation: Cephalic Cephalic Presentation: Vertex Vertex Position: Left Occipital Anterior Breech Presentation: N/A PLACENTA INFORMATION BABY A Placenta Delivery Time : 12/21/2018 09:03 Placenta Method of Delivery: Manual Removal Placenta Status: Delivered SCORES BABY A Heart Rate 1 min: >100 bpm Resp Effort 1 min: Good Cry Reflex Irritability 1 min: Cough/Sneeze/Pulls Away Muscle Tone 1 min: Active Motion Color 1 min: Body [place], Extremit Blue Resuscitation Effort 1 min: Tactile Stimulation SCORE 1 MIN: 9 Heart Rate 5 min: >100 bpm Resp Effort 5 min: Good Cry Reflex Irritability 5 min: Cough/Sneeze/Pulls Away Muscle Tone 5 min: Active Motion Color 5 min: Body [place], Extremit Blue Resuscitation Effort 5 min: Tactile Stimulation SCORE 5 MIN: 9 INFORMATION BABY A Gestational Age at Delivery: 38.1 Gestational Status: Early Term- 37- 38.6 Weeks Infant Outcome : Liveborn Condition : Stable Infant Sex: Male IDENTIFICATION/MEDS BABY A ID Band Number: [id number] ID Band Location: Right Leg; Left Arm Sensor Applied: Yes Sensor Number: [id number] Sensor Location : Cord Clamp Vitamin K Given : Not Given Erythromycin Given: Not Given WEIGHT/LENGTH BABY A Birthweight (gm): 3305 Infant Weight (lb): 7 Infant Weight (oz): 5 Length (in): 20.50 Length (cm): 52.07 CORD INFORMATION BABY A No. Cord Vessels: 3 Nuchal Cord : Around Neck x1, Tight Cord Blood Taken: Yes Suction: Mouth; Nose ASSESSMENT BABY A Infant Complications: None Physical Findings at Delivery: Within Normal Limits Respirations: Appears Normal Finished Cigar Maker/ALS Called : No Infant Care By: TAM FAIR Transferred To: Remains with Mother
--- NOTE | 2018-12-26 15:10 | NSTRPT ---
NST Information Datetime Report Generated by CPN: 12/26/2018 15:10 Datetime: 12/20/2018 08:32 NST Information EGA: 38.0 Test Number: 3 Time on Monitor: 12/20/2018 09:02 Time off Monitor: 12/20/2018 09:43 NST Duration (Min): 41 Reason for NST: Other Reason for NST Other: small uterine myomas Test and Monitor Explained: Monitor Explained; Test Explained; Verbalized Understanding Pulse: 93 Resp: 18 SBP: 144 DBP: 92 Test Evaluation NST Interventions: None Patient States Movement: Present Contraction Frequency: x3/40-60/mild/pain level 0 FHR Baseline : 140 Variability: Moderate 6-25bpm Accelerations: 15X15 Decelerations: None FHR Category: Category I NST Results: Reactive Provider Notified: Dr Vasquez reviewed BPs; pt taking labetalol bid Comments: To u/s MIGNON 18.2 CM CEPHALIC REPEAT BPs-133/70, 121/62, 121/60 Denies MCDONNELL/blurred vision, swelling of hands, feet or face, epigastric pain. Reflexes 2+. Pt came by bus with her baby in a stroller _ states it was a stressful morning. Given printed pree clampsia symtoms _ reviewed verbally. Verbalizes understanding. Takes labetalol 200 mg BID Electronically Signed By E-Signature: with User ID: [id number] Datetime: 12/16/2018 09:34 NST Information EGA: 37.3 NST Duration (Min): 31 Datetime: 12/13/2018 09:20 NST Information EGA: 37.0 NST Duration (Min): 30
== END 2018-12-24 14:15 | disposition home or self-care (01) | DRG 787 ==
LOC: L-D 06:06 → PP1 12:59
PROVIDERS: ADMIT Obstetrics & Gynecology; ATTEND Obstetrics & Gynecology
PROC: 4A1HXCZ Monitoring of Products of Conception, Cardiac Rate, External Approach (ICD-10-PCS; 2018-12-21)
PROC: 10D00Z1 Extraction of Products of Conception, Low, Open Approach (ICD-10-PCS; principal; 2018-12-21 07:30)
PROC: 3E0234Z Introduction of Serum, Toxoid and Vaccine into Muscle, Percutaneous Approach (ICD-10-PCS; 2018-12-23)
PROC: 3E0234Z Introduction of Serum, Toxoid and Vaccine into Muscle, Percutaneous Approach (ICD-10-PCS; 2018-12-24)
DX: O34.211 Maternal care for low transverse scar from previous cesarean delivery (principal); O10.92 Unspecified pre-existing hypertension complicating childbirth; Z37.0 Single live birth; Z23 Encounter for immunization; Z3A.38 38 weeks gestation of pregnancy
CPT/HCPCS: 80053; 85025; 85610; 85730; 86592; 86850; 86900; 86901; 87340; 90686; 90715; 99464; J0690; J1885; J2274; J2370; J2405; J2590; J2765; J3010; J7120; J7121